=== PATIENT | male | born 1995 | race Caucasian/White ===

== ENCOUNTER 2023-02-26 05:18 | Emergency (ER) | payer OTHER ==
[~2023-02-26] VITALS: Ht 180.3 cm; Wt 118.2 kg
[2023-02-26] MEDS ORDERED: ESCI20TA87 PO (05:28)
[2023-02-26 06:04] LABS: BASOPHILS % (AUTO) 0.3 % (0.0-2.0); EOSINOPHILS % (AUTO) 1.8 % (1.0-6.0); HEMATOCRIT 44.4 % (41-53); HEMOGLOBIN 15.5 g/dL (13.5-17.5); LYMPHOCYTES # (AUTO) 1.4 K/uL (1.0-4.8); LYMPHOCYTES % (AUTO) 28.1 % (22.0-44.0); MEAN CORPUSCULAR HEMOGLOBIN 30.9 pg (26.0-34.0); MEAN CORPUSCULAR HGB CONC 34.9 G/dL (31.0-37.0); MEAN CORPUSCULAR VOLUME 89 fL (80-100); MONOCYTES # (AUTO) 0.5 K/uL (0.1-1.0); MONOCYTES % (AUTO) 9.8 % (2.0-9.0); PLATELET COUNT (AUTO) 259 K/uL (150-450); RED BLOOD CELL COUNT(AUTO) 5.02 MIL/uL (4.50-5.90); RED CELL DISTRIBUTION WIDTH 12.6 % (11.5-14.5)
[2023-02-26 06:19] LABS: ANION GAP 7 mmol/L (8-16); CALCIUM, TOTAL 8.8 mg/dL (8.8-10.5); CARBON DIOXIDE 30 mmol/L (22-29); CHLORIDE 104 mmol/L (98-107); CREATININE 0.87 mg/dL (0.60-1.30); GLOMERULAR FILTR. RATE CALC > 60 mL/min (>60); GLUCOSE,RANDOM 128 mg/dL (70-110); POTASSIUM 3.9 mmol/L (3.5-5.1); SODIUM SERUM 141 mmol/L (136-145); UREA NITROGEN, BLOOD 17 mg/dL (7-18)
[2023-02-26 06:23] LABS: ALANINE AMINOTRANSFERASE 47 U/L (12-78); ALBUMIN 4.3 g/dL (3.4-5.0); ALKALINE PHOSPHATASE 71 U/L (46-116); ASPARTATE AMINOTRANSFERASE 24 U/L (15-37); BILIRUBIN,TOTAL 0.9 mg/dL (0.1-1.0); LIPASE 67 U/L (73-393); TOTAL PROTEIN, SERUM 7.5 g/dL (6.4-8.2)
[2023-02-26] MEDS ORDERED: ONDANSETRON HCL 4 MG/2 ML VIAL IVP ONE (06:30)
[2023-02-26] MEDS ORDERED: ACETAMINOPHEN 500 MG TABLET PO ONE (06:30)
[2023-02-26] MEDS ORDERED: SODIUM CHLORIDE 0.9% 1,000 ML IV ONE (06:30)
[2023-02-26] MEDS ORDERED: MECLIZINE HCL 25 MG TABLET PO ONE (06:30)
[2023-02-26 07:20] VITALS: BP 122/83
[2023-02-26] MEDS ORDERED: ONDA-104 PO (07:21)
[2023-02-26] MEDS ORDERED: ACET-66 PO (07:21)
[2023-02-26] MEDS ORDERED: MECL-134 PO (07:21)
== END 2023-02-26 07:33 | disposition home or self-care (01) ==
LOC: EMS 05:18
DX: R42 Dizziness and giddiness (principal); R11.0 Nausea; F41.9 Anxiety disorder, unspecified
CPT/HCPCS: 99284; 96374; 96361; 80053; 83690; 84484; 85025; 36415; 93005; J2405; J7030

== ENCOUNTER 2025-04-24 14:22 | Emergency (ER) | payer OTHER ==
[~2025-04-24] VITALS: Ht 180.3 cm; Wt 113.6 kg
[~2025-04-24 14:22] MED LIST: ACET-66 PO; ESCI20TA87 PO; MECL-134 PO; ONDA-104 PO
[2025-04-24 14:28] VITALS: TEMP 98.5
[2025-04-24] MEDS ORDERED: NAPR-1196 PO (14:30)
[2025-04-24] MEDS ORDERED: FLUO-418 PO (14:30)
[2025-04-24] MEDS: HYDROCODONE/ACETAMINOPHEN 5-325 MG TABLET PO ONE (15:41)
[2025-04-24] MEDS: methocarbamoL 500 MG TABLET PO ONE (15:41)
[2025-04-24] MEDS: KETOROLAC TROMETHAMINE 60 MG/2 ML VIAL IM ONE (15:41)
[2025-04-24] MEDS: LORazepam 2 MG/ML VIAL IVP ONE (16:57)
[2025-04-24] MEDS: ONDANSETRON HCL 4 MG/2 ML VIAL IVP ONE (16:57)
[2025-04-24] MEDS: MORPHINE SULFATE 4 MG/ML SYRINGE IVP ONE (16:57)
[2025-04-24] MEDS: METHOCARBAMOL 100 MG/ML 10 ML VIAL IVP ONE (16:57)
[2025-04-24 16:58] LABS: BASOPHILS % (AUTO) 0.3 % (0.0-2.0); EOSINOPHILS % (AUTO) 0.3 % (1.0-6.0); HEMATOCRIT 48.1 % (41-53); HEMOGLOBIN 16.5 g/dL (13.5-17.5); LYMPHOCYTES % (AUTO) 11.1 % (22.0-44.0); MEAN CORPUSCULAR HEMOGLOBIN 30.5 pg (26.0-34.0); MEAN CORPUSCULAR HGB CONC 34.2 G/dL (31.0-37.0); MEAN CORPUSCULAR VOLUME 89 fL (80-100); MONOCYTES # (AUTO) 0.5 K/uL (0.1-1.0); MONOCYTES % (AUTO) 5.8 % (2.0-9.0); NEUTROPHILS # (AUTO) 7.6 K/uL (1.8-7.7); NEUTROPHILS % (AUTO) 82.5 % (40.0-70.0); PLATELET COUNT (AUTO) 272 K/uL (150-450); RED CELL DISTRIBUTION WIDTH 12.6 % (11.5-14.5); WHITE BLOOD COUNT (AUTO) 9.2 K/uL (4.5-11.0)
[2025-04-24 17:07] LABS: ANION GAP 9 mmol/L (8-16); CARBON DIOXIDE 30 mmol/L (22-29); CHLORIDE 102 mmol/L (98-107); CREATININE 1.02 mg/dL (0.60-1.30); GLOMERULAR FILTR. RATE CALC > 60 mL/min (>60); GLUCOSE,RANDOM 117 mg/dL (70-110); POTASSIUM 3.9 mmol/L (3.5-5.1); SODIUM SERUM 141 mmol/L (136-145); UREA NITROGEN, BLOOD 15 mg/dL (7-18)
[2025-04-24 17:35] VITALS: BP 114/69; PULSE 70; RESP 18; O2SAT 96
[2025-04-24] MEDS ORDERED: HYDR-4062 PO (17:44)
[2025-04-24] MEDS ORDERED: METH-812 PO (17:44)
== END 2025-04-24 17:59 | disposition home or self-care (01) ==
LOC: EMS 14:22
DX: S39.012A Strain of muscle, fascia and tendon of lower back, initial encounter (principal); F12.90 Cannabis use, unspecified, uncomplicated; F32.A Depression, unspecified; F41.9 Anxiety disorder, unspecified; Z79.899 Other long term (current) drug therapy; X58.XXXA Exposure to other specified factors, initial encounter; Y93.89 Activity, other specified; Y92.89 Other specified places as the place of occurrence of the external cause; Y99.8 Other external cause status
CPT/HCPCS: 99284; 96374; 96375; 80048; 85025; 36415; 96372; J1885; J2060; J2270; J2405; J2800